=== PATIENT | female | born 1995 | race Caucasian/White ===

== ENCOUNTER 2021-10-19 21:49 | Emergency (ER) | payer BC, MEDICAID ==
[~2021-10-19] VITALS: Ht 170.2 cm; Wt 71.2 kg
[2021-10-19 22:18] LABS: APPEARANCE,URINE Clear (CLEAR); BILIRUBIN,URINE Negative (NEGATIVE); COLOR,URINE Yellow (YELLOW); GLUCOSE, URINE (UA) Negative (NEGATIVE); KETONES,URINE Negative (NEGATIVE); LEUKOCYTE ESTERASE ,URINE Negative (NEGATIVE); NITRATE,URINE Negative (NEGATIVE); OCCULT BLOOD,URINE Negative (NEGATIVE); PH,URINE 8.5 (5.0-8.0); PROTEIN,URINE Negative (NEGATIVE); UROBILINOGEN,URINE 0.2 mg/dL (0.2-1.0)
[2021-10-19 22:56] LABS: BASOPHILS % (AUTO) 0.2 % (0.0-5.0); EOSINOPHILS % (AUTO) 0.1 % (0.0-8.0); HEMATOCRIT 39.8 % (36-48); MEAN CORPUSCULAR HEMOGLOBIN 28.5 pg (27.0-33.0); MEAN CORPUSCULAR HGB CONC 32.9 g/dL (32.0-36.0); MEAN CORPUSCULAR VOLUME 86.7 fL (79-99); MONOCYTES % (AUTO) 5.4 % (3.0-13.0); PLATELET COUNT (AUTO) 221 K/uL (130-400); RED BLOOD CELL COUNT(AUTO) 4.59 MIL/uL (4.00-5.50); RED CELL DISTRIBUTION WIDTH 12.8 % (11.0-15.5); WHITE BLOOD COUNT (AUTO) 12.4 K/uL (4.8-10.8)
[2021-10-19] MEDS ORDERED: METOCLOPRAMIDE 10 MG/2 ML VIAL IVP ONE (23:00)
[2021-10-19] MEDS ORDERED: 0.9%NACL 1000ML 1,000 ML IV ONE (23:00)
[2021-10-19] MEDS ORDERED: KETOROLAC 30MG VIAL (30MG/ML) IV ONE (23:00)
[2021-10-19] MEDS ORDERED: ACETAMINOPHEN 500 MG TABLET PO ONE (23:00)
[2021-10-19] MEDS ORDERED: ONDANSETRON 4MG INJ IVP ONE (23:00)
[2021-10-19] MEDS ORDERED: IOHEXOL-350 75 ML VIAL IV ONE (23:06)
[2021-10-19 23:12] LABS: ALBUMIN 4.1 g/dL (3.5-5.0); BILIRUBIN,TOTAL 0.4 mg/dL (0.2-1.0); CREATININE 0.7 mg/dL (0.5-1.5); POTASSIUM 3.6 mmol/L (3.5-5.1)
[2021-10-20] MEDS ORDERED: HYOS-28 PO (01:13)
[2021-10-20] MEDS ORDERED: METO-296 PO (01:13)
[2021-10-20] MEDS ORDERED: ONDA4TAB10 PO (01:13)
[2021-10-20] MEDS ORDERED: DICY20TA2 PO (01:13)
[2021-10-20 01:38] VITALS: BP 120/79
== END 2021-10-20 01:41 | disposition home or self-care (01) ==
LOC: EDH 21:49
DX: E86.9 Volume depletion, unspecified (principal); R10.31 Right lower quadrant pain; R50.9 Fever, unspecified; F41.9 Anxiety disorder, unspecified; Z20.822 Contact with and (suspected) exposure to COVID-19
CPT/HCPCS: 36415; 74177; 80053; 81003; 81025; 83690; 85025; 87635; 87804 ×2; 96361; 96374; 96375; 99284; C9803; J1885; J2405; J2765; J7030; Q9967